=== PATIENT | female | born 1965 | race Hispanic/Latino ===

== ENCOUNTER 2020-07-04 13:32 | Inpatient (IN) | payer SELFPAY ==
[~2020-07-04] VITALS: Ht 165.1 cm; Wt 77.8 kg
[2020-07-04] MEDS ORDERED: KETOROLAC TROMETHAMINE 30MG/ML ONE (13:58)
[2020-07-04] MEDS ORDERED: CYCLOBENZAPRINE HCL 10 MG TABLET ONE (13:59)
[2020-07-04 14:01] LABS: APPEARANCE,URINE Cloudy (CLEAR); BILIRUBIN,URINE Negative (NEGATIVE); COLOR,URINE Yellow (YELLOW); GLUCOSE, URINE (UA) >=1000 mg/dL (NEGATIVE); KETONES,URINE Negative (NEGATIVE); LEUKOCYTE ESTERASE ,URINE Moderate (NEGATIVE); NITRATE,URINE Negative (NEGATIVE); OCCULT BLOOD,URINE Large (NEGATIVE); PROTEIN,URINE POS 1+ mg/dL (NEGATIVE)
[2020-07-04] MEDS ORDERED: SODIUM CHLORIDE 0.9% 1000ML 1,000 ML IV ONE (14:01)
[2020-07-04 14:13] LABS: BACTERIA,URINE Moderate /HPF (None Seen); TRANSITIONAL EPI CELLS,URINE Moderate /HPF (None Seen)
[2020-07-04 14:14] LABS: COARSE GRANULAR CASTS,URINE 0-2 /LPF (None Seen); FINE GRANULAR CASTS,URINE 0-2 /LPF (None Seen)
[2020-07-04] MEDS ORDERED: CEFTRIAXONE SODIUM 1 GM ONE (14:46)
[2020-07-04] MEDS ORDERED: SODIUM CHLORIDE 0.9% 50 ML IV ONE (14:47)
[2020-07-04 14:53] LABS: BASOPHILS % (AUTO) 0.5 % (0.0-5.0); EOSINOPHILS % (AUTO) 0.1 % (0.0-8.0); HEMATOCRIT 34.4 % (36-48); LYMPHOCYTES % (AUTO) 12.1 % (21.0-51.0); MEAN CORPUSCULAR HEMOGLOBIN 27.3 pg (27.0-33.0); MEAN CORPUSCULAR VOLUME 80.2 fL (79-99); MONOCYTES % (AUTO) 5.8 % (3.0-13.0); NEUTROPHILS % (AUTO) 78.8 % (40.0-77.0); PLATELET COUNT (AUTO) 82 K/uL (130-400); RED BLOOD CELL COUNT(AUTO) 4.29 MIL/uL (4.00-5.50); WHITE BLOOD COUNT (AUTO) 14.7 K/uL (4.8-10.8)
[2020-07-04 15:11] LABS: ALBUMIN 2.4 g/dL (3.5-5.0); BILIRUBIN,TOTAL 0.9 mg/dL (0.2-1.0); CREATININE 1.4 mg/dL (0.5-1.5); POTASSIUM 3.6 mmol/L (3.5-5.1); TOTAL PROTEIN, SERUM 7.2 g/dL (6.0-8.3)
[2020-07-04] MEDS ORDERED: INSULIN HUMULIN R 100 UNIT/ML 3ML ONE (15:48)
[2020-07-04] MEDS ORDERED: ZOLPIDEM TARTRATE 5 MG TAB PO PRN (17:15)
[2020-07-04] MEDS ORDERED: NITROGLYCERIN 0.4 MG SL TAB SL PRN (17:15)
[2020-07-04] MEDS ORDERED: ACETAMINOPHEN-CODEINE 300/30MG TAB PO PRN (17:15)
[2020-07-04] MEDS ORDERED: CEFTRIAXONE SODIUM 1 GM IV SCH (17:15)
[2020-07-04] MEDS ORDERED: GLUCAGON 1MG KIT 1 MG ML IM PRN (17:15)
[2020-07-04] MEDS: SODIUM CHLORIDE 0.9% 1000ML 1,000 ML IV SCH (17:15)
[2020-07-04] MEDS ORDERED: GUAIFENESIN-DM 200/20 MG 10 ML PO PRN (17:15)
[2020-07-04] MEDS ORDERED: ACETAMINOPHEN 325 MG TAB PO PRN ×2 (17:15)
[2020-07-04] MEDS ORDERED: MAG HYDROX/AL HYDROX/SIMETH ES 30 ML SUSP UDCUP PO PRN (17:15)
[2020-07-04] MEDS ORDERED: ONDANSETRON HCL 4 MG/2 ML VIAL IV PRN (17:15)
[2020-07-04] MEDS ORDERED: DEXTROSE 50%-WATER 50 ML DISP.SYRIN IV PRN (17:15)
[2020-07-04 18:29] LABS: CREATININE 1.5 mg/dL (0.5-1.5)
[2020-07-04] MEDS ORDERED: FAMOTIDINE 20MG TAB 20 MG TAB ONE (20:40)
[2020-07-04] MEDS ORDERED: ACETAMINOPHEN 325 MG TAB ONE (20:59)
[2020-07-04] MEDS ORDERED: FAMOTIDINE 20MG TAB 20 MG TAB PO SCH (21:00)
[2020-07-04] MEDS: INSULIN GLARGINE 100 UNITS/ML 10 ML VIAL SQ SCH (21:00)
[2020-07-04] MEDS: INSULIN HUMULIN R 100 UNIT/ML 3ML SQ SCH (21:00)
[2020-07-05] VITALS (8 sets, daily range): BP systolic 106–149; BP diastolic 55–75
[2020-07-05] MEDS: SODIUM CHLORIDE 0.9% 1000ML 1,000 ML IV SCH ×3 (02:28→23:09)
[2020-07-05 05:11] LABS: BASOPHILS % (AUTO) 0.5 % (0.0-5.0); EOSINOPHILS % (AUTO) 0.1 % (0.0-8.0); HEMATOCRIT 32.9 % (36-48); LYMPHOCYTES % (AUTO) 13.6 % (21.0-51.0); MEAN CORPUSCULAR HEMOGLOBIN 27.7 pg (27.0-33.0); MEAN CORPUSCULAR VOLUME 81.4 fL (79-99); NEUTROPHILS % (AUTO) 76.8 % (40.0-77.0); PLATELET COUNT (AUTO) 96 K/uL (130-400); RED BLOOD CELL COUNT(AUTO) 4.04 MIL/uL (4.00-5.50); RED CELL DISTRIBUTION WIDTH 14.1 % (11.0-15.5); WHITE BLOOD COUNT (AUTO) 15.1 K/uL (4.8-10.8)
[2020-07-05 05:28] LABS: ALBUMIN 2.1 g/dL (3.5-5.0); BILIRUBIN,TOTAL 0.7 mg/dL (0.2-1.0); CREATININE 1.3 mg/dL (0.5-1.5); POTASSIUM 3.3 mmol/L (3.5-5.1); TOTAL PROTEIN, SERUM 6.4 g/dL (6.0-8.3)
[2020-07-05] MEDS: INSULIN HUMULIN R 100 UNIT/ML 3ML SQ SCH ×7 (06:33→21:46)
[2020-07-05] MEDS: FAMOTIDINE 20MG TAB 20 MG TAB PO SCH (09:45)
[2020-07-05] MEDS: ENOXAPARIN SODIUM 30 MG/0.3 ML SQ SCH (09:50)
[2020-07-05] MEDS: LEVOFLOXACIN 500 MG/D5W 100 ML 100 ML IV SCH (11:53)
[2020-07-05] MEDS: POTASSIUM CHLORIDE 20 MEQ ERTAB PO SCH (11:53)
[2020-07-05] MEDS: INSULIN GLARGINE 100 UNITS/ML 10 ML VIAL SQ SCH (21:47)
[2020-07-06 04:39] VITALS: BP 106/59
[2020-07-06 05:07] LABS: BASOPHILS % (AUTO) 0.6 % (0.0-5.0); EOSINOPHILS % (AUTO) 0.2 % (0.0-8.0); HEMATOCRIT 30.7 % (36-48); LYMPHOCYTES % (AUTO) 27.7 % (21.0-51.0); MEAN CORPUSCULAR HEMOGLOBIN 26.6 pg (27.0-33.0); MEAN CORPUSCULAR HGB CONC 33.2 g/dL (32.0-36.0); MEAN CORPUSCULAR VOLUME 79.9 fL (79-99); MONOCYTES % (AUTO) 7.7 % (3.0-13.0); NEUTROPHILS % (AUTO) 59.1 % (40.0-77.0); PLATELET COUNT (AUTO) 123 K/uL (130-400); RED BLOOD CELL COUNT(AUTO) 3.84 MIL/uL (4.00-5.50); RED CELL DISTRIBUTION WIDTH 14.2 % (11.0-15.5)
[2020-07-06 05:11] LABS: CREATININE 1.1 mg/dL (0.5-1.5); POTASSIUM 3.1 mmol/L (3.5-5.1)
[2020-07-06] MEDS: INSULIN HUMULIN R 100 UNIT/ML 3ML SQ SCH ×7 (05:25→21:43)
[2020-07-06 07:30] VITALS: BP 103/50
[2020-07-06] MEDS: POTASSIUM CHLORIDE 20 MEQ ERTAB PO SCH (08:11)
[2020-07-06] MEDS ORDERED: POTASSIUM CHLORIDE 10% ELIXIR 20 MEQ/15 ML UDCUP PO PRN (08:30)
[2020-07-06] MEDS: SODIUM CHLORIDE 0.9% 1000ML 1,000 ML IV SCH (09:15)
[2020-07-06] MEDS: FAMOTIDINE 20MG TAB 20 MG TAB PO SCH (09:53)
[2020-07-06] MEDS: ENOXAPARIN SODIUM 30 MG/0.3 ML SQ SCH (09:54)
[2020-07-06] MEDS: LEVOFLOXACIN 500 MG/D5W 100 ML 100 ML IV SCH (09:54)
[2020-07-06 11:00] VITALS: BP 98/59
[2020-07-06] MEDS: POTASSIUM CHLORIDE 20 MEQ ERTAB PO PRN ×2 (11:18→14:09)
[2020-07-06 16:00] VITALS: BP 96/55
[2020-07-06 20:20] VITALS: BP 111/65
[2020-07-06] MEDS: INSULIN GLARGINE 100 UNITS/ML 10 ML VIAL SQ SCH (21:42)
[2020-07-07 00:20] VITALS: BP 99/64
[2020-07-07 04:24] VITALS: BP 98/58
[2020-07-07 05:18] LABS: BASOPHILS % (AUTO) 0.4 % (0.0-5.0); EOSINOPHILS % (AUTO) 0.1 % (0.0-8.0); HEMATOCRIT 31.4 % (36-48); LYMPHOCYTES % (AUTO) 26.4 % (21.0-51.0); MEAN CORPUSCULAR HEMOGLOBIN 26.6 pg (27.0-33.0); MEAN CORPUSCULAR HGB CONC 33.1 g/dL (32.0-36.0); MEAN CORPUSCULAR VOLUME 80.3 fL (79-99); MONOCYTES % (AUTO) 6.1 % (3.0-13.0); NEUTROPHILS % (AUTO) 64.4 % (40.0-77.0); PLATELET COUNT (AUTO) 186 K/uL (130-400); RED BLOOD CELL COUNT(AUTO) 3.91 MIL/uL (4.00-5.50); RED CELL DISTRIBUTION WIDTH 14.9 % (11.0-15.5); WHITE BLOOD COUNT (AUTO) 17.2 K/uL (4.8-10.8)
[2020-07-07 05:32] LABS: CREATININE 0.9 mg/dL (0.5-1.5); POTASSIUM 3.8 mmol/L (3.5-5.1)
[2020-07-07] MEDS: INSULIN HUMULIN R 100 UNIT/ML 3ML SQ SCH ×7 (06:14→20:37)
[2020-07-07] MEDS ORDERED: METF-446 PO (07:43)
[2020-07-07 08:00] VITALS: BP 107/63
[2020-07-07] MEDS: POTASSIUM CHLORIDE 20 MEQ ERTAB PO SCH (10:00)
[2020-07-07] MEDS: FAMOTIDINE 20MG TAB 20 MG TAB PO SCH (10:45)
[2020-07-07] MEDS: LEVOFLOXACIN 500 MG/D5W 100 ML 100 ML IV SCH (10:46)
[2020-07-07] MEDS: ENOXAPARIN SODIUM 30 MG/0.3 ML SQ SCH (10:46)
[2020-07-07 12:00] VITALS: BP 108/65
[2020-07-07 16:00] VITALS: BP 108/65
[2020-07-07 20:16] VITALS: BP 110/72
[2020-07-07] MEDS: INSULIN GLARGINE 100 UNITS/ML 10 ML VIAL SQ SCH (20:36)
[2020-07-08 00:16] VITALS: BP 94/51
[2020-07-08 04:16] VITALS: BP 99/61
[2020-07-08 04:57] LABS: BASOPHILS % (AUTO) 0.5 % (0.0-5.0); EOSINOPHILS % (AUTO) 0.4 % (0.0-8.0); LYMPHOCYTES % (AUTO) 32.6 % (21.0-51.0); MEAN CORPUSCULAR HEMOGLOBIN 27.1 pg (27.0-33.0); MEAN CORPUSCULAR HGB CONC 33.4 g/dL (32.0-36.0); MONOCYTES % (AUTO) 6.1 % (3.0-13.0); NEUTROPHILS % (AUTO) 57.6 % (40.0-77.0); PLATELET COUNT (AUTO) 244 K/uL (130-400); RED BLOOD CELL COUNT(AUTO) 3.95 MIL/uL (4.00-5.50); RED CELL DISTRIBUTION WIDTH 14.8 % (11.0-15.5)
[2020-07-08 05:04] LABS: CREATININE 0.9 mg/dL (0.5-1.5)
[2020-07-08] MEDS: INSULIN HUMULIN R 100 UNIT/ML 3ML SQ SCH ×4 (05:48→12:31)
[2020-07-08 08:00] VITALS: BP 112/46
[2020-07-08] MEDS: FAMOTIDINE 20MG TAB 20 MG TAB PO SCH (08:56)
[2020-07-08] MEDS: ENOXAPARIN SODIUM 30 MG/0.3 ML SQ SCH (08:56)
[2020-07-08] MEDS: POTASSIUM CHLORIDE 20 MEQ ERTAB PO SCH (08:57)
[2020-07-08] MEDS: LEVOFLOXACIN 500 MG/D5W 100 ML 100 ML IV SCH (08:57)
[2020-07-08 12:06] VITALS: BP 110/61
[2020-07-08] MEDS ORDERED: LEVO500T89 PO (12:51)
[2020-07-08 16:00] VITALS: BP 113/60
== END 2020-07-08 17:40 | disposition home or self-care (01) | DRG 638 ==
LOC: EDH 13:32 → EDHIP 13:33 → UNDOADMIN 17:15 → 4BH 07-05 00:51 → 3CH 07-08 14:07
PROVIDERS: ADMIT Internal Medicine; ATTEND Internal Medicine
DX: E11.65 Type 2 diabetes mellitus with hyperglycemia (principal); N39.0 Urinary tract infection, site not specified; E87.1 Hypo-osmolality and hyponatremia; E44.1 Mild protein-calorie malnutrition; J98.11 Atelectasis; E87.8 Other disorders of electrolyte and fluid balance, not elsewhere classified; R74.02 Elevation of levels of lactic acid dehydrogenase [LDH]; E87.6 Hypokalemia; D72.829 Elevated white blood cell count, unspecified; Z60.2 Problems related to living alone; Z20.822 Contact with and (suspected) exposure to COVID-19; Z68.28 Body mass index [BMI] 28.0-28.9, adult; Z88.0 Allergy status to penicillin
CPT/HCPCS: 36415; 70450; 71045; 80048; 80053; 81001; 82010; 82565; 82570; 82948; 83036; 84145; 84295; 85025; 87040; 87088; 87426; 97039; G0378; J0696; J1650; J1815; J1885; J1956; J7030; U0003